=== PATIENT | male | born 1950 | race Two or more races ===

== ENCOUNTER 2017-05-30 14:29 | Inpatient (IN) | payer OTHER, MEDICAID ==
[~2017-05-30] VITALS: Ht 167.6 cm; Wt 88.9 kg
[2017-05-30] MEDS ORDERED: Solu-MEDROL 125mg Inj IVP ONE (14:45)
[2017-05-30 14:50] VITALS: BP 159/106
--- NOTE | 2017-05-30 14:53 | Emergency Room Report ---
History of Present Illness General Chief Complaint: Upper Respiratory Illness Source: Patient Present Illness HPI 67-year-old male with history of asthma, htn p/w SOB for 2 weeks SOB occurs both at rest and on exertion. + non productive cough. Denies chest pain. Patient has been using albuterol inhaler every 6 hours. No recent steroid use. Pt states that this episode is similar to other episodes of asthma exacerbation. Denies fever, chills. Denies sick contacts or recent travel. States that he just came from his doctor's office who sent him to the ER Allergies: Coded Allergies: No Known Allergies (Unverified , 05/30/17) Patient History Past Medical History: see triage record Past Surgical History: none Pertinent Family History: none Reviewed Nursing Documentation: PMH: Agreed, PSxH: Agreed Nursing Documentation-PMH Past Medical History: No History, Except For Hx Hypertension: Yes Hx Asthma: Yes Hx Diabetes: Yes Review of Systems All Other Systems: negative except mentioned in HPI Physical Exam Vital Signs Date Time Temp Pulse Resp B/P (MAP) Pulse Ox O2 Delivery O2 Flow Rate FiO2 05/30/17 14:38 98.2 68 18 160/84 92 Room Air 98.2 Sp02 EP Interpretation: reviewed, normal General Appearance: alert, GCS 15, non-toxic, moderate distress Head: normocephalic, atraumatic Eyes: bilateral eye normal inspection, bilateral eye PERRL, bilateral eye EOMI ENT: normal ENT inspection, normal pharynx, normal voice, moist mucus membranes Neck: normal inspection, full range of motion, supple Respiratory: respiratory distress, wheezing, expiration Cardiovascular #1: normal inspection, regular rate, rhythm, no edema, normal capillary refill Cardiovascular #2: 2+ radial (R), 2+ radial (L) Gastrointestinal: normal inspection, non tender, soft, non-distended, no guarding Genitourinary: no CVA tenderness Musculoskeletal: normal inspection, back normal, normal range of motion, non- tender Neurologic: normal inspection, alert, oriented x3, responsive, motor strength/ tone normal, sensory intact, normal gait, speech normal Psychiatric: normal inspection, judgement/insight normal, memory normal Skin: normal inspection, normal color, no rash, warm/dry, well hydrated, normal turgor Procedures Critical Care Time Critical Care Time 40 minutes of CC time 67-year-old male with asthma exacerbation VS: Hypoxic, tachypneic PLAN: IV access, labs, meds steroids and magnesium Anticipate admission to Tele vs. KANDICE CC time also includes review of labs, review of EMR, discussion with family and paperwork from SNF, d/w hospitalist CC could include dosing of pressors, additional Abx CC time does not include procedures Medical Decision Making Diagnostic Impression: Primary Impression: Asthma exacerbation ER Course 67-year-old male with history of asthma p/w SOB DDX: Asthma exacerbation, pneumonia, upper respiratory infection/viral syndrome Plan: Combivent nebulizer treatment x 3, steroids, EKG, CXR If patient's condition minimally improves/worsens will require IV access and blood work. Possible IV medications such as magnesium sulfate, continuous albuterol, BIPAP. ER Course: Patient's respiratory status has been closely monitored in the ED. Patient has been treated with combivent x 3, steroids, antibiotics. IV mag sulfate CXR reveals no acute infiltrate Repeat lung auscultation reveals persistent wheezing. more nebs given, however pt does appear more comfortable Disposition: pt approved to be admitted to observation DW Dr Kaur Please note that this Emergency Department Report was dictated using [employer] property disposal agent technology software, occasionally this can lead to erroneous entry secondary to interpretation by the dictation equipment. EKG Diagnostic Results EP Interpretation: Yes Rate: normal Rhythm: NSR ST Segments: No acute changes, RBBB ASA given to patient: No Rhythm Strip EP Interpretation: Yes Rate: 66 Rhythm: NSR, no PVCs, no ectopy Chest X-ray CXR: Ordered: Yes 1 view Indication: SOB EP interpretation: Yes Interpretation: No consolidation, no effusion, no PTX, no acute cardiopulmonary disease Impression: No acute disease Electronically signed by Irma Rose MD Laboratory Tests Test 05/30/17 14:25 05/30/17 15:00 Urine Color Pale yellow Urine Appearance Clear Urine pH 7 (4.5-8.0) Urine Specific [place] 1.005 (1.005-1.035) Urine Protein Negative (NEGATIVE) Urine Glucose (UA) 4+ (NEGATIVE) H Urine Ketones Negative (NEGATIVE) Urine Occult Blood Negative (NEGATIVE) Urine Nitrite Negative (NEGATIVE) Urine Bilirubin Negative (NEGATIVE) Urine Urobilinogen Normal MG/DL (0.0-1.0) Urine Leukocyte Esterase Negative (NEGATIVE) White Blood Count 8.7 K/UL (4.8-10.8) Red Blood Count 4.27 M/UL (4.70-6.10) L Hemoglobin 14.2 G/DL (14.2-18.0) Hematocrit 40.3 % (42.0-52.0) L Mean Corpuscular Volume 94 FL (80-99) Mean Corpuscular Hemoglobin 33.2 PG (27.0-31.0) H Mean Corpuscular Hemoglobin Concent 35.1 G/DL (32.0-36.0) Red Cell Distribution Width 11.8 % (11.6-14.8) Platelet Count 279 K/UL (150-450) Mean Platelet Volume 5.7 FL (6.5-10.1) L Neutrophils (%) (Auto) % (45.0-75.0) Lymphocytes (%) (Auto) % (20.0-45.0) Monocytes (%) (Auto) % (1.0-10.0) Eosinophils (%) (Auto) % (0.0-3.0) Basophils (%) (Auto) % (0.0-2.0) Neutrophils % (Manual) Pending Lymphocytes % (Manual) Pending Platelet Estimate Pending Platelet Morphology Pending Sodium Level 140 MMOL/L (136-145) Potassium Level 4.8 MMOL/L (3.5-5.1) Chloride Level 101 MMOL/L (98-107) Carbon Dioxide Level 36 MMOL/L (21-32) H Anion Gap 3 mmol/L (5-15) L Blood Urea Nitrogen 17 mg/dL (7-18) Creatinine 1.3 MG/DL (0.55-1.30) Estimate Glomerular Filtration Rate 55.2 mL/min (>60) Glucose Level 222 MG/DL (74-106) H Calcium Level 9.2 MG/DL (8.5-10.1) Total Bilirubin 0.3 MG/DL (0.2-1.0) Aspartate Amino Transferase (AST) 24 U/L (15-37) Alanine Aminotransferase (ALT) 35 U/L (12-78) Alkaline Phosphatase 100 U/L (46-116) Troponin I 0.004 ng/mL (0.000-0.056) Pro-B-Type Natriuretic Peptide 253 pg/mL (0-125) H Total Protein 7.4 G/DL (6.4-8.2) Albumin 3.3 G/DL (3.4-5.0) L Globulin 4.1 g/dL Albumin/Globulin Ratio 0.8 (1.0-2.7) L Last Vital Signs Date Time Temp Pulse Resp B/P (MAP) Pulse Ox O2 Delivery O2 Flow Rate FiO2 05/30/17 14:50 98.5 66 20 159/106 97 Room Air 98.5 Disposition: PLACE IN OBSERVATION Condition: Serious RetinoIrma M.D. May 30, 2017 14:53
[2017-05-30] MEDS ORDERED: ASPIR 8181 MG ORAL (14:58)
[2017-05-30] MEDS ORDERED: GABAPENTIN300 MG ORAL (14:58)
[2017-05-30] MEDS ORDERED: MONTELUKAST SOD10 MG ORAL (14:58)
[2017-05-30] MEDS ORDERED: THEOPHYLLINE400 MG PO (14:58)
[2017-05-30] MEDS ORDERED: NOVOLOG100 UNIT/3 SUBQ (14:58)
[2017-05-30] MEDS ORDERED: POTASSIUM 25 M25 ME1 PO (14:58)
[2017-05-30] MEDS ORDERED: METOPROLOL TART50 MG ORAL (14:58)
[2017-05-30] MEDS: Albuterol ud Inhalation HHN SCH ×6 (15:02→16:29)
[2017-05-30] MEDS: Ipratropium 0.02% Inh Soln 2.5ml UD HHN SCH ×3 (15:03→15:36)
[2017-05-30 15:27] LABS: HEMATOCRIT 40.3 % (42.0-52.0); HEMOGLOBIN 14.2 G/DL (14.2-18.0); MEAN CORPUSCULAR VOLUME 94 FL (80-99); PLATELET COUNT 279 K/UL (150-450); RED BLOOD COUNT 4.27 M/UL (4.70-6.10); RED CELL DISTRIBUTION WIDTH 11.8 % (11.6-14.8); WHITE BLOOD COUNT 8.7 K/UL (4.8-10.8)
[2017-05-30 15:47] LABS: APPEARANCE,URINE CLEAR; BILIRUBIN, URINE NEGATIVE (NEGATIVE); COLOR,URINE PALE YELLOW; GLUCOSE, URINE (UA) 4+ (NEGATIVE); KETONES,URINE NEGATIVE (NEGATIVE); LEUKOCYTE ESTERASE ,URINE NEGATIVE (NEGATIVE); NITRITE,URINE NEGATIVE (NEGATIVE); PH,URINE 7 (4.5-8.0); PROTEIN,URINE NEGATIVE (NEGATIVE); UROBILINOGEN,URINE NORMAL MG/DL (0.0-1.0)
[2017-05-30 15:48] LABS: ANION GAP 3 mmol/L (5-15); BLOOD UREA NITROGEN 17 mg/dL (7-18); CALCIUM 9.2 MG/DL (8.5-10.1); CARBON DIOXIDE 36 MMOL/L (21-32); CHLORIDE 101 MMOL/L (98-107); CREATININE 1.3 MG/DL (0.55-1.30); POTASSIUM 4.8 MMOL/L (3.5-5.1); SODIUM 140 MMOL/L (136-145)
[2017-05-30 16:00] LABS: ALANINE AMINOTRANSFERASE 35 U/L (12-78); ALBUMIN 3.3 G/DL (3.4-5.0); ALBUMIN/GLOBULIN RATIO 0.8 (1.0-2.7); ALKALINE PHOSPHATASE 100 U/L (46-116); ASPARTATE AMINO TRANSFERASE 24 U/L (15-37); BILIRUBIN,TOTAL 0.3 MG/DL (0.2-1.0)
--- NOTE | 2017-05-30 16:14 | Diagnostic Imaging Report ---
Indication: Shortness of breath Technique: One view of the chest Comparison: none Findings: The heart is upper limits of normal in size. Lungs and pleural spaces are clear. Impression: No acute process
[2017-05-30 16:30] VITALS: BP 160/80
[2017-05-30 18:30] VITALS: BP 141/56
[2017-05-30 20:00] VITALS: BP 160/73
[2017-05-30] MEDS ORDERED: Levemir Flexpen SUBQ SCH (23:15)
[2017-05-31] VITALS: BP 147/60
[2017-05-31] MEDS: Solu-MEDROL 40mg Inj IVP SCH ×4 (01:00→17:56)
[2017-05-31] MEDS: Albuterol/Ipratropium 3ml neb HHN SCH ×6 (03:24→23:02)
[2017-05-31 04:00] VITALS: BP 140/68
[2017-05-31 06:39] LABS: HEMATOCRIT 39.6 % (42.0-52.0); HEMOGLOBIN 13.6 G/DL (14.2-18.0); MEAN CORPUSCULAR VOLUME 96 FL (80-99); PLATELET COUNT 289 K/UL (150-450); RED BLOOD COUNT 4.14 M/UL (4.70-6.10); RED CELL DISTRIBUTION WIDTH 11.9 % (11.6-14.8); WHITE BLOOD COUNT 10.8 K/UL (4.8-10.8)
[2017-05-31 07:00] LABS: ANION GAP 12 mmol/L (5-15); BLOOD UREA NITROGEN 22 mg/dL (7-18); CALCIUM 9.4 MG/DL (8.5-10.1); CARBON DIOXIDE 27 MMOL/L (21-32); CHLORIDE 95 MMOL/L (98-107); CREATININE 1.6 MG/DL (0.55-1.30); POTASSIUM 4.8 MMOL/L (3.5-5.1); SODIUM 134 MMOL/L (136-145)
[2017-05-31 08:00] VITALS: BP 163/110
[2017-05-31] MEDS ORDERED: Meloxicam 15 MG TAB ORAL SCH (09:45)
[2017-05-31] MEDS ORDERED: Azithromycin 250mg tab ORAL ONE (09:45)
[2017-05-31] MEDS: Losartan 50mg tab ORAL SCH (10:50)
[2017-05-31] MEDS: Furosemide 40mg tab ORAL SCH (10:51)
[2017-05-31] MEDS: Metoprolol Tartrate 50mg tab ORAL SCH ×2 (10:51→21:43)
[2017-05-31] MEDS: Levemir Flexpen SUBQ SCH (11:00)
[2017-05-31 12:00] VITALS: BP 155/93
--- NOTE | 2017-05-31 15:45 | History and Physical Report ---
DATE OF ADMISSION: 05/30/2017 HISTORY OF PRESENT ILLNESS: The patient is a 67-year-old man, who came to the emergency department because of increasing shortness of breath, wheezing, and cough due to asthma. He states he has been having more difficulty over the past two weeks. He has asthma for about four years. He quit smoking about 30 years ago, but was a heavy smoker prior to that. The patient was admitted and started on breathing treatments and steroids and is feeling better. He is coughing up yellow sputum. He has no high fever. PAST MEDICAL HISTORY: The patient has longstanding asthma as noted above. In addition, he has diabetes, hypertension, and hyperlipidemia. He states he has had two heart attacks in the past. He has a history of edema and difficulty urinating. ALLERGIES: None. MEDICATIONS: Reviewed. REVIEW OF SYSTEMS: He complains of arthritis. PHYSICAL EXAMINATION: GENERAL: The patient is overweight. VITAL SIGNS: Show blood pressure is elevated. There is no fever. SKIN: Warm and dry. HEAD: Head is normocephalic. NECK: No jugular vein distention. CHEST: Has wheezing. CARDIAC: Rhythm is regular. ABDOMEN: Obese, soft, and nontender. EXTREMITIES: Have 1+ edema. LABORATORY AND DIAGNOSTIC DATA: Laboratory studies are reviewed. Chest x-ray is clear. IMPRESSION: 1. Exacerbation of asthma. 2. Diabetes, poor control. 3. Hypertension, poor control. 4. History of coronary disease. 5. Chronic kidney disease, stage 3 associated with diabetes. PLAN: The patient will be continued on nebulized bronchodilators and steroids. We will add antibiotics and blood pressure medication. We will not give nonsteroidal medications due to kidney disease. The blood sugar will be monitored and insulin adjusted accordingly. Torito Moreau M.D. DR: GADIEL JOB#: [id number] CC: Mina Kaur M.D.; Fax#: [phone] TORITO MOREAU M.D. ; FAX#: [phone]
[2017-05-31 16:00] VITALS: BP 151/79
[2017-05-31] MEDS ORDERED: Flu Vaccine Quadrivalent 0.5ml IM ONE (17:00)
[2017-05-31 20:00] VITALS: BP 146/68
[2017-05-31] MEDS ORDERED: Levemir Flexpen SUBQ SCH (21:00)
[2017-05-31] MEDS: NovoLOG Insulin Flexpen SUBQ SCH (21:38)
[2017-05-31] MEDS ORDERED: NovoLOG Insulin Flexpen SUBQ STA (22:40)
[2017-06-01] VITALS: BP 130/61
[2017-06-01] MEDS: Solu-MEDROL 40mg Inj IVP SCH ×2 (00:16→05:58)
[2017-06-01] MEDS ORDERED: NovoLOG Insulin Flexpen SUBQ ONE (01:00)
[2017-06-01] MEDS: Albuterol/Ipratropium 3ml neb HHN SCH ×6 (03:15→23:00)
[2017-06-01 04:00] VITALS: BP 135/95
[2017-06-01] MEDS: NovoLOG Insulin Flexpen SUBQ SCH ×4 (06:01→20:38)
[2017-06-01 06:56] LABS: HEMATOCRIT 40.1 % (42.0-52.0); MEAN CORPUSCULAR VOLUME 94 FL (80-99); PLATELET COUNT 292 K/UL (150-450); RED BLOOD COUNT 4.26 M/UL (4.70-6.10); RED CELL DISTRIBUTION WIDTH 11.9 % (11.6-14.8); WHITE BLOOD COUNT 18.3 K/UL (4.8-10.8)
[2017-06-01 07:18] LABS: ALANINE AMINOTRANSFERASE 64 U/L (12-78); ALBUMIN 3.7 G/DL (3.4-5.0); ALBUMIN/GLOBULIN RATIO 0.9 (1.0-2.7); ALKALINE PHOSPHATASE 99 U/L (46-116); ANION GAP 11 mmol/L (5-15); ASPARTATE AMINO TRANSFERASE 95 U/L (15-37); BILIRUBIN,TOTAL 0.3 MG/DL (0.2-1.0); BLOOD UREA NITROGEN 38 mg/dL (7-18); CARBON DIOXIDE 31 MMOL/L (21-32); CHLORIDE 98 MMOL/L (98-107); CHOLESTEROL 156 MG/DL (< 200); CREATININE 1.7 MG/DL (0.55-1.30); HDL CHOLESTEROL 41 MG/DL (40-60); POTASSIUM 3.8 MMOL/L (3.5-5.1); SODIUM 139 MMOL/L (136-145); TRIGLYCERIDES 118 MG/DL (30-150)
[2017-06-01 08:00] VITALS: BP 141/65
[2017-06-01] MEDS: Metoprolol Tartrate 50mg tab ORAL SCH ×2 (08:31→20:49)
[2017-06-01] MEDS: Furosemide 40mg tab ORAL SCH (08:31)
[2017-06-01] MEDS: Losartan 50mg tab ORAL SCH (08:31)
[2017-06-01] MEDS: Levemir Flexpen SUBQ SCH (08:43)
[2017-06-01] MEDS ORDERED: Azithromycin 250mg tab ORAL SCH (09:00)
--- NOTE | 2017-06-01 11:21 | Pulmonology Progress Note ---
Assessment/Plan Assessment/Plan 1. Exacerbation of asthma. 2. Diabetes, poor control. 3. Hypertension, poor control. 4. History of coronary disease. 5. Chronic kidney disease, stage 3 associated with diabetes. PLAN: The patient will be continued on nebulized bronchodilators and steroids. Continue antibiotics and blood pressure medication. The blood sugar will be monitored and insulin adjusted accordingly. Subjective Interval Events: Feeling better; WBC 18K Constitutional: Reports: no symptoms HEENT: Repors: no symptoms Respiratory: Reports: no symptoms Cardiovascular: Reports: no symptoms Genitourinary: Reports: no symptoms Allergies: Coded Allergies: No Known Allergies (Unverified , 05/30/17) Objective Last 24 Hour Vital Signs Date Time Temp Pulse Resp B/P (MAP) Pulse Ox O2 Delivery O2 Flow Rate FiO2 06/01/17 10:43 83 20 100 Room Air 21 06/01/17 10:37 21 06/01/17 10:36 81 20 98 Room Air 21 06/01/17 08:31 141/65 06/01/17 08:31 85 141/65 06/01/17 08:00 97.9 85 21 141/65 97 Room Air 97.9 06/01/17 07:14 82 20 99 Room Air 21 06/01/17 07:03 21 06/01/17 07:01 84 20 98 Room Air 21 06/01/17 04:00 83 06/01/17 04:00 97.9 83 18 135/95 93 Room Air 97.9 06/01/17 03:30 74 20 95 Room Air 21 06/01/17 03:15 21 06/01/17 03:14 74 20 95 Room Air 21 06/01/17 00:00 78 06/01/17 00:00 97.9 78 20 130/61 95 Room Air 97.9 05/31/17 23:14 88 22 95 Room Air 21 05/31/17 23:01 88 22 95 Room Air 21 05/31/17 23:01 21 05/31/17 21:43 91 146/68 05/31/17 20:00 107 05/31/17 20:00 98.4 91 16 146/68 95 Room Air 98.4 05/31/17 19:39 98 22 94 Room Air 21 05/31/17 19:27 98 22 94 Room Air 21 05/31/17 19:27 21 05/31/17 16:00 98 05/31/17 16:00 98.0 99 22 151/79 94 Room Air 98.0 05/31/17 15:01 99 18 99 Room Air 21 05/31/17 14:55 21 05/31/17 14:54 94 18 98 Room Air 21 05/31/17 12:00 97 05/31/17 12:00 97.2 109 20 155/93 94 Room Air 97.2 05/31/17 11:37 105 18 100 Room Air 21 05/31/17 11:32 21 05/31/17 11:31 103 18 99 Room Air 21 Intake and Output 05/31/17 06/01/17 19:00 07:00 Intake Total 960 ml 1000 ml Balance 960 ml 1000 ml Intake Oral 960 ml 1000 ml HEENT: normocephalic Respiratory/Chest: chest wall non-tender, normal breath sounds Cardiovascular: normal peripheral pulses Abdomen: normal bowel sounds Laboratory Tests 06/01/17 06:10: White Blood Count 18.3#H, Red Blood Count 4.26L, Hemoglobin 14.0L, Hematocrit 40.1L, Mean Corpuscular Volume 94, Mean Corpuscular Hemoglobin 32.8H, Mean Corpuscular Hemoglobin Concent 34.8, Red Cell Distribution Width 11.9, Platelet Count 292, Mean Platelet Volume 5.7L, Neutrophils (%) (Auto) , Lymphocytes (%) ( Auto) , Monocytes (%) (Auto) , Eosinophils (%) (Auto) , Basophils (%) (Auto) , Differential Total Cells Counted 100, Neutrophils % (Manual) 94H, Lymphocytes % (Manual) 2L, Monocytes % (Manual) 4, Eosinophils % (Manual) 0, Basophils % ( Manual) 0, Band Neutrophils 0, Platelet Estimate Adequate, Platelet Morphology Normal, Red Blood Cell Morphology Normal, Sodium Level 139, Potassium Level 3.8 , Chloride Level 98, Carbon Dioxide Level 31, Anion Gap 11, Blood Urea Nitrogen 38H, Creatinine 1.7H, Estimat Glomerular Filtration Rate 40.5, Glucose Level 339H, Hemoglobin A1c 9.0H, Calcium Level 9.0, Total Bilirubin 0.3, Aspartate Amino Transf (AST/SGOT) 95H, Alanine Aminotransferase (ALT/SGPT) 64, Alkaline Phosphatase 99, Total Protein 7.9, Albumin 3.7, Globulin 4.2, Albumin/Globulin Ratio 0.9L, Triglycerides Level 118, Cholesterol Level 156, LDL Cholesterol 104H , HDL Cholesterol 41, Cholesterol/HDL Ratio 3.8, Prostate Specific Antigen 1.46 , Thyroid Stimulating Hormone (TSH) 0.131L Current Medications Medications (Trade) Dose Ordered Sig/Migel Route PRN Reason Start Time Stop Time Status Last Admin Dose Admin Albuterol/ Ipratropium (Albuterol/ Ipratropium) 3 ml Q4HRT HHN 05/31/17 03:00 06/05/17 02:59 06/01/17 10:36 Azithromycin (Zithromax) 250 mg DAILY ORAL 06/01/17 09:00 06/08/17 08:59 06/01/17 08:31 Dextrose (Dextrose 50%) STAT PRN IV Hypoglycemia 05/31/17 20:45 06/30/17 20:44 Furosemide (Lasix) 40 mg DAILY ORAL 05/31/17 09:00 06/30/17 08:59 06/01/17 08:31 Gabapentin (Neurontin) 300 mg TID ORAL 05/31/17 09:00 06/30/17 08:59 06/01/17 08:31 Insulin Aspart (NovoLOG) BEFORE MEALS AND HS SUBQ 05/31/17 21:00 06/30/17 20:59 06/01/17 06:01 Insulin Detemir (Levemir) 8 units DAILY SUBQ 05/31/17 09:00 06/30/17 08:59 06/01/17 08:43 Insulin Detemir (Levemir) 60 units BEDTIME SUBQ 06/01/17 21:00 07/01/17 20:59 Losartan Potassium (Cozaar) 100 mg DAILY ORAL 05/31/17 10:00 06/30/17 09:59 06/01/17 08:31 Methylprednisolone Sodium Succinate (Solu-MEDROL) 40 mg EVERY 6 HOURS IVP 05/31/17 00:00 06/30/17 00:00 06/01/17 05:58 Metoprolol Tartrate (Lopressor) 50 mg Q12HR ORAL 05/31/17 09:00 06/30/17 08:59 06/01/17 08:31 Pantoprazole (Protonix) 40 mg DAILY ORAL 05/31/17 09:45 06/30/17 09:44 06/01/17 08:31 Potassium Chloride (K-Dur) 20 meq DAILY ORAL 05/31/17 09:00 06/30/17 08:59 06/01/17 08:31 Mina Kaur MD Jun 01, 2017 11:21
[2017-06-01 12:00] VITALS: BP 137/60
[2017-06-01 16:00] VITALS: BP 137/65
[2017-06-01 20:00] VITALS: BP 159/69
[2017-06-01] MEDS ORDERED: Solu-MEDROL 40mg Inj IVP SCH (21:00)
[2017-06-01] MEDS ORDERED: Levemir Flexpen SUBQ SCH (21:00)
[2017-06-02] VITALS (12 sets, daily range): BP systolic 126–179; BP diastolic 58–146
[2017-06-02] MEDS: Albuterol/Ipratropium 3ml neb HHN SCH (03:00)
[2017-06-02] MEDS: NovoLOG Insulin Flexpen SUBQ SCH ×3 (06:21→20:58)
[2017-06-02 07:35] LABS: HEMATOCRIT 39.1 % (42.0-52.0); HEMOGLOBIN 13.6 G/DL (14.2-18.0); MEAN CORPUSCULAR VOLUME 94 FL (80-99); PLATELET COUNT 270 K/UL (150-450); RED BLOOD COUNT 4.16 M/UL (4.70-6.10); RED CELL DISTRIBUTION WIDTH 11.7 % (11.6-14.8); WHITE BLOOD COUNT 17.1 K/UL (4.8-10.8)
[2017-06-02 07:55] LABS: ANION GAP 4 mmol/L (5-15); BLOOD UREA NITROGEN 33 mg/dL (7-18); CALCIUM 8.4 MG/DL (8.5-10.1); CARBON DIOXIDE 34 MMOL/L (21-32); CHLORIDE 102 MMOL/L (98-107); CREATININE 1.2 MG/DL (0.55-1.30); POTASSIUM 4.4 MMOL/L (3.5-5.1); SODIUM 140 MMOL/L (136-145)
[2017-06-02] MEDS ORDERED: Furosemide 40mg tab ORAL SCH (09:00)
[2017-06-02] MEDS ORDERED: Metoprolol Tartrate 50mg tab ORAL SCH (09:00)
[2017-06-02] MEDS ORDERED: Azithromycin 250mg tab ORAL SCH (09:00)
[2017-06-02] MEDS ORDERED: Losartan 50mg tab ORAL SCH (09:00)
[2017-06-02] MEDS ORDERED: Levemir Flexpen SUBQ SCH ×2 (09:00→21:00)
[2017-06-02] MEDS ORDERED: Solu-MEDROL 40mg Inj IVP SCH (09:00)
[2017-06-02] MEDS ORDERED: NovoLOG Insulin Flexpen SUBQ SCH (11:30)
--- NOTE | 2017-06-02 11:40 | Pulmonology Progress Note ---
Assessment/Plan Assessment/Plan 1. Exacerbation of asthma. 2. Diabetes, poor control. 3. Hypertension, poor control. 4. History of coronary disease. 5. Chronic kidney disease, stage 3 associated with diabetes. 6. tachycardia; now resolved. PLAN: The patient will be continued on nebulized bronchodilators and steroids. Continue antibiotics and blood pressure medication. The blood sugar will be monitored and insulin adjusted accordingly. Transfer back to [facility] Will consult cardiology Subjective Interval Events: Transferred to ICU last night diue to tachycardia Constitutional: Reports: no symptoms HEENT: Repors: no symptoms Respiratory: Reports: no symptoms Cardiovascular: Reports: no symptoms Gastrointestinal/Abdominal: Reports: no symptoms Allergies: Coded Allergies: No Known Allergies (Unverified , 05/30/17) Objective Last 24 Hour Vital Signs Date Time Temp Pulse Resp B/P (MAP) Pulse Ox O2 Delivery O2 Flow Rate FiO2 06/02/17 11:00 59 18 160/71 99 Nasal Cannula 2.0 06/02/17 10:00 67 18 148/129 99 Nasal Cannula 2.0 06/02/17 09:05 85 142/63 06/02/17 09:03 142/63 06/02/17 09:00 86 18 179/146 99 Nasal Cannula 2.0 06/02/17 08:00 98.2 83 18 142/63 99 Nasal Cannula 2.0 98.2 06/02/17 07:05 66 18 136/58 95 Nasal Cannula 2.0 06/02/17 06:09 70 18 134/66 97 Nasal Cannula 2.0 06/02/17 05:00 85 20 133/68 98 Nasal Cannula 2.0 06/02/17 04:42 Nasal Cannula 2.0 06/02/17 04:42 100 Nasal Cannula 2.0 06/02/17 04:15 80 06/02/17 04:00 98.0 180 20 164/91 97 Nasal Cannula 2.0 98.0 06/02/17 03:30 Room Air 06/02/17 03:29 Room Air 06/02/17 00:03 97.4 67 18 126/63 94 Room Air 97.4 06/02/17 00:00 65 06/01/17 23:37 Room Air 06/01/17 23:37 Room Air 06/01/17 20:49 85 159/69 06/01/17 20:00 97.1 85 17 159/69 94 Room Air 97.1 06/01/17 20:00 83 06/01/17 20:00 82 20 100 Room Air 21 06/01/17 19:52 84 20 96 Room Air 21 06/01/17 19:52 21 06/01/17 16:00 81 06/01/17 16:00 97.7 81 22 137/65 95 Room Air 97.7 06/01/17 14:48 86 20 100 Room Air 21 06/01/17 14:41 21 06/01/17 14:40 79 20 99 Room Air 21 06/01/17 12:00 82 06/01/17 12:00 97.9 78 22 137/60 97 Room Air 97.9 Intake and Output 06/01/17 06/02/17 19:00 07:00 Intake Total 900 ml 240 ml Output Total 700 ml Balance 900 ml -460 ml Intake Oral 900 ml 240 ml Output Urine Total 700 ml # Bowel Movements 1 General Appearance: no acute distress HEENT: normocephalic Respiratory/Chest: chest wall non-tender, lungs clear Cardiovascular: normal peripheral pulses, normal rate Abdomen: normal bowel sounds Laboratory Tests 06/02/17 04:22: Arterial Blood pH 7.454H, Arterial Blood Partial Pressure CO2 42.9, Arterial Blood Partial Pressure O2 96.7, Arterial Blood HCO3 29.4H, Arterial Blood Oxygen Saturation 97.4, Arterial Blood Base Excess 4.9, Rodrick Test Positive 06/02/17 07:00: White Blood Count 17.1H, Red Blood Count 4.16L, Hemoglobin 13.6L, Hematocrit 39.1L, Mean Corpuscular Volume 94, Mean Corpuscular Hemoglobin 32.8H, Mean Corpuscular Hemoglobin Concent 34.8, Red Cell Distribution Width 11.7, Platelet Count 270, Mean Platelet Volume 6.1L, Neutrophils (%) (Auto) , Lymphocytes (%) ( Auto) , Monocytes (%) (Auto) , Eosinophils (%) (Auto) , Basophils (%) (Auto) , Differential Total Cells Counted 100, Neutrophils % (Manual) 88H, Lymphocytes % (Manual) 7L, Monocytes % (Manual) 5, Eosinophils % (Manual) 0, Basophils % ( Manual) 0, Band Neutrophils 0, Platelet Estimate Adequate, Platelet Morphology Normal, Red Blood Cell Morphology Normal, Sodium Level 140, Potassium Level 4.4 , Chloride Level 102, Carbon Dioxide Level 34H, Anion Gap 4L, Blood Urea Nitrogen 33H, Creatinine 1.2, Estimat Glomerular Filtration Rate > 60, Glucose Level 266H, Calcium Level 8.4L, Troponin I 0.121H Current Medications Medications (Trade) Dose Ordered Sig/Migel Route PRN Reason Start Time Stop Time Status Last Admin Dose Admin Azithromycin (Zithromax) 250 mg DAILY ORAL 06/02/17 09:00 06/08/17 08:59 06/02/17 09:23 Dextrose (Dextrose 50%) STAT PRN IV Hypoglycemia 06/02/17 07:00 07/02/17 06:59 Furosemide (Lasix) 40 mg DAILY ORAL 06/02/17 09:00 06/30/17 08:59 06/02/17 09:04 Gabapentin (Neurontin) 300 mg TID ORAL 06/02/17 09:00 06/30/17 08:59 06/02/17 08:58 Insulin Aspart (NovoLOG) BEFORE MEALS AND HS SUBQ 06/02/17 11:30 06/30/17 20:59 Insulin Detemir (Levemir) 8 units DAILY SUBQ 06/02/17 09:00 06/30/17 08:59 06/02/17 08:48 Insulin Detemir (Levemir) 60 units BEDTIME SUBQ 06/02/17 21:00 07/01/17 20:59 Losartan Potassium (Cozaar) 100 mg DAILY ORAL 06/02/17 09:00 06/30/17 09:59 06/02/17 09:03 Methylprednisolone Sodium Succinate (Solu-MEDROL) 40 mg EVERY 12 HOURS IVP 06/02/17 09:00 06/30/17 00:00 06/02/17 08:49 Metoprolol Tartrate (Lopressor) 50 mg Q12HR ORAL 06/02/17 09:00 06/30/17 08:59 06/02/17 09:05 Pantoprazole (Protonix) 40 mg DAILY ORAL 06/02/17 09:00 06/30/17 09:44 06/02/17 08:58 Potassium Chloride (K-Dur) 20 meq DAILY ORAL 06/02/17 09:00 06/30/17 08:59 06/02/17 08:57 Mina Kaur MD Jun 02, 2017 11:40
[2017-06-02] MEDS ORDERED: Flonase Nasal Inhaler 16gm NASAL PRN ×2 (13:30)
[2017-06-02] MEDS: Solu-MEDROL 40mg Inj IVP SCH (20:54)
[2017-06-02] MEDS: Metoprolol Tartrate 50mg tab ORAL SCH (20:55)
[2017-06-02] MEDS: Levemir Flexpen SUBQ SCH (20:58)
[2017-06-02] MEDS: Aspirin Baby 81mg ORAL SCH (21:27)
--- NOTE | 2017-06-03 03:30 | Consultation ---
DATE OF CONSULTATION: 06/02/2017 CARDIOLOGY CONSULTATION CONSULTING PHYSICIAN: Jong Matthews M.D. REQUESTING PHYSICIAN: Mina Kaur M.D. HISTORY OF PRESENT ILLNESS: This is a 67-year-old male, who came to the emergency room several days ago with shortness of breath, wheezing, and cough. He has a history of asthma. He was treated with inhaled bronchodilators and antimicrobials. He was admitted to the intensive care unit due to worsening respiratory parameters over the past few days as well as uncontrolled blood pressure. His respiratory parameters improved today and he was noted to have a troponin level elevation of 0.112, which was normal on admission. He has not noted any chest pain. PAST MEDICAL HISTORY: Coronary artery disease, history of myocardial infarctions x2, type 2 diabetes mellitus, hypertension, hyperlipidemia, asthma, and prostatic hypertrophy. MEDICATIONS: Reviewed. ALLERGIES: None. FAMILY HISTORY: Noncontributory. SOCIAL HISTORY: No record of smoking or substance abuse. No alcohol abuse. REVIEW OF SYSTEMS: Otherwise unremarkable. PHYSICAL EXAMINATION: VITAL SIGNS: Blood pressure ranging from 142/63 to 160/71. There is an extraneous level of 179/146 noted early this morning as well. He has heart rate in the 59 to 86 and respiratory 18 to 20. HEENT: Conjunctiva pink. Oropharynx clear. NECK: Supple. No accessory muscle use. LUNGS: With diminished breath sounds. No wheezing. CARDIAC: Regular rhythm and rate. Normal S1, S2 with a fourth heart sound. ABDOMEN: Soft. EXTREMITIES: No edema. DIAGNOSTIC DATA: EKG revealed ectopic atrial rhythm, right bundle-branch block, and nonspecific ST-T changes. IMPRESSION: 1. Asthma exacerbation, improved. 2. Accelerated hypertension, improving. 3. Elevated troponin level in the setting of ischemic heart disease suggestive of acute myocardial ischemia and possible [id number] myocardial infarction. PLAN: 1. Add aspirin. 2. Follow up troponin level and EKG. 3. Consider myocardial perfusion scan. 4. Maintain beta-shivam and titration of antihypertensive regimen for optimal blood pressure control. Jong Matthews M.D. DR: BUDDY JOB#: [id number] CC:
[2017-06-03 04:00] VITALS: BP 143/85
[2017-06-03] MEDS: NovoLOG Insulin Flexpen SUBQ SCH ×4 (05:48→20:41)
[2017-06-03 08:00] VITALS: BP 150/75
--- NOTE | 2017-06-03 09:38 | Pulmonology Progress Note ---
Assessment/Plan Assessment/Plan 1. Exacerbation of asthma. 2. Diabetes, poor control. 3. Hypertension, poor control. 4. History of coronary disease. 5. Chronic kidney disease, stage 3 associated with diabetes. 6. tachycardia; now resolved. PLAN: The patient will be continued on nebulized bronchodilators and steroids. Continue antibiotics and blood pressure medication. The blood sugar will be monitored and insulin adjusted accordingly. Transfer back to [facility] Has troponin leak; seen by cardiology Stress test being planned. Subjective Interval Events: FEELING BETTER Constitutional: Reports: no symptoms HEENT: Repors: no symptoms Respiratory: Reports: no symptoms Cardiovascular: Reports: no symptoms Gastrointestinal/Abdominal: Reports: no symptoms Genitourinary: Reports: no symptoms Allergies: Coded Allergies: No Known Allergies (Unverified , 05/30/17) Objective Last 24 Hour Vital Signs Date Time Temp Pulse Resp B/P (MAP) Pulse Ox O2 Delivery O2 Flow Rate FiO2 06/03/17 04:00 97.2 56 20 143/85 100 Room Air 97.2 06/03/17 03:58 57 06/03/17 00:00 57 06/02/17 20:55 79 149/76 06/02/17 19:46 73 06/02/17 15:58 97.5 71 18 150/73 99 Room Air 97.5 06/02/17 15:31 72 06/02/17 14:43 62 18 135/60 99 Room Air 06/02/17 12:00 66 18 148/71 99 Nasal Cannula 2.0 06/02/17 12:00 58 06/02/17 11:00 59 18 160/71 99 Nasal Cannula 2.0 06/02/17 10:00 67 18 148/129 99 Nasal Cannula 2.0 Intake and Output 06/02/17 06/03/17 19:00 07:00 Intake Total 750 ml 400 ml Output Total 1800 ml 400 ml Balance -1050 ml 0 ml Intake Oral 750 ml 400 ml Output Urine Total 1800 ml 400 ml # Voids 5 3 General Appearance: no acute distress HEENT: normocephalic Respiratory/Chest: chest wall non-tender, lungs clear Cardiovascular: normal peripheral pulses, normal rate Abdomen: normal bowel sounds Laboratory Tests 06/03/17 06:50: Troponin I 0.077H, Pro-B-Type Natriuretic Peptide 757H Current Medications Medications (Trade) Dose Ordered Sig/Migel Route PRN Reason Start Time Stop Time Status Last Admin Dose Admin Acetaminophen (Tylenol) 650 mg Q6H PRN ORAL Mild Pain/Temp > 100.5 06/03/17 03:15 07/03/17 03:14 06/03/17 03:20 Aspirin (ASA) 81 mg DAILY ORAL 06/02/17 20:30 07/02/17 20:29 06/02/17 21:27 Azithromycin (Zithromax) 250 mg DAILY ORAL 06/03/17 09:00 06/08/17 08:59 Dextrose (Dextrose 50%) STAT PRN IV Hypoglycemia 06/02/17 13:45 07/02/17 13:44 Fluticasone Propionate (Flonase) 2 spray DAILYPRN PRN NASAL allergic rhinitis 06/02/17 13:30 07/02/17 13:29 Furosemide (Lasix) 40 mg DAILY ORAL 06/03/17 09:00 06/30/17 08:59 Gabapentin (Neurontin) 300 mg TID ORAL 06/02/17 18:00 06/30/17 08:59 06/02/17 16:31 Insulin Aspart (NovoLOG) BEFORE MEALS AND HS SUBQ 06/02/17 16:30 06/30/17 20:59 06/03/17 05:48 Insulin Detemir (Levemir) 8 units DAILY SUBQ 06/03/17 09:00 06/30/17 08:59 Insulin Detemir (Levemir) 60 units BEDTIME SUBQ 06/02/17 21:00 07/01/17 20:59 06/02/17 20:58 Losartan Potassium (Cozaar) 100 mg DAILY ORAL 06/03/17 09:00 06/30/17 09:59 Methylprednisolone Sodium Succinate (Solu-MEDROL) 40 mg EVERY 12 HOURS IVP 06/02/17 21:00 06/30/17 00:00 06/02/17 20:54 Metoprolol Tartrate (Lopressor) 50 mg Q12HR ORAL 06/02/17 21:00 06/30/17 08:59 06/02/17 20:55 Pantoprazole (Protonix) 40 mg DAILY ORAL 06/03/17 09:00 06/30/17 09:44 Potassium Chloride (K-Dur) 20 meq DAILY ORAL 06/03/17 09:00 06/30/17 08:59 Mina Kaur MD Jun 03, 2017 09:38
[2017-06-03] MEDS: Aspirin Baby 81mg ORAL SCH (09:42)
[2017-06-03] MEDS: Losartan 50mg tab ORAL SCH (09:42)
[2017-06-03] MEDS: Metoprolol Tartrate 50mg tab ORAL SCH ×2 (09:43→20:37)
[2017-06-03] MEDS: Furosemide 40mg tab ORAL SCH (09:43)
[2017-06-03] MEDS: Azithromycin 250mg tab ORAL SCH (09:43)
[2017-06-03] MEDS: Solu-MEDROL 40mg Inj IVP SCH ×2 (09:49→20:36)
[2017-06-03] MEDS: Levemir Flexpen SUBQ SCH ×2 (09:50→20:38)
[2017-06-03 12:00] VITALS: BP 144/72
[2017-06-03 16:00] VITALS: BP 139/58
[2017-06-03 20:00] VITALS: BP 142/60
[2017-06-04] VITALS: BP 123/55
--- NOTE | 2017-06-04 02:30 | Progress Note ---
DATE: 06/03/2017 CARDIOLOGY PROGRESS NOTE SUBJECTIVE: No chest pain. No shortness of breath. Blood pressure parameters now controlled. Monitored rhythm, sinus and sinus bradycardia. OBJECTIVE: LUNGS: Good breath sounds. No wheezing. HEART: Regular rhythm and rate. Normal S1, S2 with a fourth heart sound. ABDOMEN: Soft. EXTREMITIES: No edema. LABORATORY DATA: Troponin levels have decreased. IMPRESSION: 1. Asthma exacerbation. 2. Acute myocardial infarction. 3. Ischemic cardiomyopathy. 4. Malignant hypertension, resolving. PLAN: Maintain current regimen. Myocardial perfusion scan to follow. Jong Matthews M.D. DR: Jasmin JOB#: [id number] CC:
[2017-06-04 04:00] VITALS: BP 132/59
[2017-06-04] MEDS: NovoLOG Insulin Flexpen SUBQ SCH ×4 (06:39→22:05)
[2017-06-04 08:00] VITALS: BP 138/73
[2017-06-04] MEDS: Metoprolol Tartrate 50mg tab ORAL SCH ×2 (08:58→22:03)
[2017-06-04] MEDS: Furosemide 40mg tab ORAL SCH (08:58)
[2017-06-04] MEDS: Losartan 50mg tab ORAL SCH (08:59)
[2017-06-04] MEDS: Azithromycin 250mg tab ORAL SCH (08:59)
[2017-06-04] MEDS: Aspirin Baby 81mg ORAL SCH (08:59)
[2017-06-04] MEDS: Solu-MEDROL 40mg Inj IVP SCH (09:00)
[2017-06-04] MEDS: Levemir Flexpen SUBQ SCH ×2 (09:04→22:06)
--- NOTE | 2017-06-04 10:18 | Pulmonology Progress Note ---
Assessment/Plan Assessment/Plan 1. Exacerbation of asthma. 2. Diabetes, poor control. 3. Hypertension, poor control. 4. History of coronary disease. 5. Chronic kidney disease, stage 3 associated with diabetes. 6. tachycardia; now resolved. PLAN: The patient will be continued on nebulized bronchodilators and steroids. Continue antibiotics and blood pressure medication. The blood sugar will be monitored and insulin adjusted accordingly. Transfer back to [facility] Has troponin leak; seen by cardiology Stress test today Will decrease stteroids. Subjective Interval Events: For stress test today; WBC 17K Constitutional: Reports: no symptoms HEENT: Repors: no symptoms Respiratory: Reports: no symptoms Gastrointestinal/Abdominal: Reports: no symptoms Genitourinary: Reports: no symptoms Allergies: Coded Allergies: No Known Allergies (Unverified , 05/30/17) Objective Last 24 Hour Vital Signs Date Time Temp Pulse Resp B/P (MAP) Pulse Ox O2 Delivery O2 Flow Rate FiO2 06/04/17 08:59 132/73 06/04/17 08:58 62 138/70 06/04/17 04:00 51 06/04/17 04:00 97.6 61 20 132/59 97 Nasal Cannula 2.0 97.6 06/04/17 00:00 48 06/04/17 00:00 96.7 53 20 123/55 97 Nasal Cannula 2.0 96.7 06/03/17 20:37 76 142/60 06/03/17 20:00 97.6 76 22 142/60 97 Room Air 97.6 06/03/17 20:00 61 06/03/17 16:00 58 06/03/17 16:00 97.7 61 19 139/58 98 Room Air 97.7 06/03/17 12:00 57 06/03/17 12:00 97.7 62 19 144/72 97 Room Air 97.7 Intake and Output 06/03/17 06/04/17 19:00 07:00 Intake Total 830 ml Balance 830 ml Intake Oral 830 ml # Voids 3 4 General Appearance: WD/WN HEENT: normocephalic Respiratory/Chest: chest wall non-tender, lungs clear Cardiovascular: normal peripheral pulses, normal rate Abdomen: normal bowel sounds Laboratory Tests 06/04/17 07:42: Troponin I 0.047 Current Medications Medications (Trade) Dose Ordered Sig/Migel Route PRN Reason Start Time Stop Time Status Last Admin Dose Admin Acetaminophen (Tylenol) 650 mg Q6H PRN ORAL Mild Pain/Temp > 100.5 06/03/17 03:15 07/03/17 03:14 06/03/17 03:20 Aspirin (ASA) 81 mg DAILY ORAL 06/02/17 20:30 07/02/17 20:29 06/04/17 08:59 Azithromycin (Zithromax) 250 mg DAILY ORAL 06/03/17 09:00 06/08/17 08:59 06/04/17 08:59 Dextrose (Dextrose 50%) STAT PRN IV Hypoglycemia 06/02/17 13:45 07/02/17 13:44 Fluticasone Propionate (Flonase) 2 spray DAILYPRN PRN NASAL allergic rhinitis 06/02/17 13:30 07/02/17 13:29 Furosemide (Lasix) 40 mg DAILY ORAL 06/03/17 09:00 06/30/17 08:59 06/04/17 08:58 Gabapentin (Neurontin) 300 mg TID ORAL 06/02/17 18:00 06/30/17 08:59 06/04/17 08:59 Insulin Aspart (NovoLOG) BEFORE MEALS AND HS SUBQ 06/02/17 16:30 06/30/17 20:59 06/04/17 06:39 Insulin Detemir (Levemir) 8 units DAILY SUBQ 06/03/17 09:00 06/30/17 08:59 06/04/17 09:04 Insulin Detemir (Levemir) 60 units BEDTIME SUBQ 06/02/17 21:00 07/01/17 20:59 06/03/17 20:38 Losartan Potassium (Cozaar) 100 mg DAILY ORAL 06/03/17 09:00 06/30/17 09:59 06/04/17 08:59 Methylprednisolone Sodium Succinate (Solu-MEDROL) 40 mg EVERY 12 HOURS IVP 06/02/17 21:00 06/30/17 00:00 06/04/17 09:00 Metoprolol Tartrate (Lopressor) 50 mg Q12HR ORAL 06/02/17 21:00 06/30/17 08:59 06/04/17 08:58 Pantoprazole (Protonix) 40 mg DAILY ORAL 06/03/17 09:00 06/30/17 09:44 06/04/17 08:59 Potassium Chloride (K-Dur) 20 meq DAILY ORAL 06/03/17 09:00 06/30/17 08:59 06/04/17 08:59 Mina Kaur MD Jun 04, 2017 10:18
[2017-06-04 12:00] VITALS: BP 143/86
[2017-06-04 16:00] VITALS: BP 141/86
--- NOTE | 2017-06-04 16:34 | Diagnostic Imaging Report ---
Indications: Chest pain and elevated troponin Technique: Single day single isotope protocol utilized. Initially, resting images obtained using IV administration 9.6 millicuries 99M technetium Myoview. Subsequently, patient underwent Dobutamine stress testing. See cardiology report for details. During dobutamine infusion, IV administration 30.1 mCi 99 M technetium Myoview. SPECT and planar images obtained. SPECT images gated to 8 phases of the cardiac cycle were also obtained, and reformatted into cine images for evaluation of ejection fraction. Comparison: none Findings: Presence or absence of symptoms during infusion not reported in the available cardiology report. Per cardiology report, resting EKG demonstrates normal sinus rhythm. During the infusion, or EKG changes. Patient did experience a run of atrial fibrillation in recovery. Patient reached a peak heart rate of 141, in excess of target heart rate 131 bpm imaging demonstrates equivocal decreased perfusion in the inferior wall which is more likely diaphragmatic attenuation artifact. This is similar on the resting images. No definite reversible perfusion defects are demonstrated. Normal cardiac chamber size. Calculated post stress ejection fraction 64%. No focal wall motion abnormality Impression: Nonischemic clinical response to pharmacologic stress, per cardiology report Nonischemic electrocardiographic response to pharmacologic stress, per cardiology report No imaging findings to suggest ischemia, at level of stress achieved. Calculated post stress ejection fraction 64%
--- NOTE | 2017-06-04 18:42 | Cardiology Report ---
APPROVED REPORT EKG Measurement Heart [id number] Unusual P axis and short SC, probable junctional rhythm with undetermined rhythm irregularity Right bundle branch block Cannot rule out Inferior infarct, age undetermined Abnormal ECG
--- NOTE | 2017-06-04 18:54 | Cardiology Report ---
APPROVED REPORT EKG Measurement Heart [id number] NC 158P [id number] Normal sinus rhythm Right bundle branch block Abnormal ECG
[2017-06-04 20:00] VITALS: BP 149/81
--- NOTE | 2017-06-04 23:15 | Progress Note ---
DATE: 06/04/2017 CARDIOLOGY PROGRESS NOTE SUBJECTIVE: The patient has no new complaints. No shortness of breath or chest pain. She continued on steroids with tapering and bronchodilators via nebulization. The patient underwent myocardial perfusion scan today with dobutamine stress. Her perfusion images revealed no ischemia and ejection fraction was normal at 64% post-stress. PHYSICAL EXAMINATION: VITAL SIGNS: Blood pressure 132/73, pulse 62, respiratory rate 20. Monitored rhythm sinus and sinus bradycardia. LUNGS: Good breath sounds. No wheezing. HEART: Regular rhythm and rate. Normal S1 and S2. ABDOMEN: Soft. EXTREMITIES: No edema. IMPRESSION: 1. Ischemic heart disease with troponin leak likely associated with malignant hypertension. No signs of reversible ischemia with dobutamine stress. 2. History of CABG. 3. Sinus bradycardia secondary to medications and asymptomatic. 4. Malignant hypertension, now controlled. 5. Asthma exacerbation, resolving. 6. Diabetes mellitus with poor control. 7. Chronic kidney disease. PLAN: 1. Maintain current cardiovascular regimen. 2. Titrate diabetic regimen. 3. 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 4. No additional inpatient cardiovascular workup planned. Jong Matthews M.D. DR: Leta JOB#: [id number] CC:
[2017-06-05] VITALS: BP 145/86
[2017-06-05 04:00] VITALS: BP 145/80
[2017-06-05] MEDS: NovoLOG Insulin Flexpen SUBQ SCH ×2 (06:30→12:02)
[2017-06-05 08:00] VITALS: BP 120/65
[2017-06-05] MEDS: Aspirin Baby 81mg ORAL SCH (08:34)
[2017-06-05] MEDS: Azithromycin 250mg tab ORAL SCH (08:35)
[2017-06-05] MEDS: Furosemide 40mg tab ORAL SCH (08:35)
[2017-06-05] MEDS: Losartan 50mg tab ORAL SCH (08:35)
[2017-06-05] MEDS: Metoprolol Tartrate 50mg tab ORAL SCH (08:35)
[2017-06-05] MEDS ORDERED: PROTONIX40 MG ORAL (09:39)
[2017-06-05] MEDS ORDERED: PREDNISONE20 MG ORAL (09:39)
[2017-06-05] MEDS ORDERED: LEVEMIR FL100 UNIT/1 SUBQ ×2 (09:39)
[2017-06-05] MEDS ORDERED: FLONASE1 SPRAYS NASAL (09:39)
[2017-06-05] MEDS ORDERED: COZAAR50 MG ORAL (09:39)
[2017-06-05] MEDS ORDERED: FUROSEMIDE40 MG ORAL (09:39)
[2017-06-05] MEDS ORDERED: POTASSIUM CHLO20 ME1 ORAL (09:39)
[2017-06-05] MEDS: Levemir Flexpen SUBQ SCH (09:43)
--- NOTE | 2017-06-05 09:43 | Discharge Summary ---
Discharge Summary Hospital Course Date of Admission May 30, 2017 at 19:01 Date of Discharge 06/05/17 Admitting Diagnosis ASTHMA EXACERBATION HPI Mynor Blair is a 67 year old male who was admitted on May 30, 2017 at 19:01 for Asthma Consultations cardiology Procedures stress cardiac imaging - no ischemia Hospital Course improved with asthma treatment stress study neg dc home 1. Ischemic heart disease with troponin leak likely associated with malignant hypertension. No signs of reversible ischemia with dobutamine stress. 2. History of CABG. 3. Sinus bradycardia secondary to medications and asymptomatic. 4. Malignant hypertension, now controlled. 5. Asthma exacerbation, resolving. 6. Diabetes mellitus with poor control. 7. Chronic kidney disease. Discharge Medications New Medications: Fluticasone Propionate (Fluticasone Propionate) 16 Gm [place].susp 2 SPRAY NASAL DAILYPRN PRN, #1 EA per nostril Furosemide* (Lasix*) 40 Mg Tablet 40 MG ORAL DAILY, #30 TAB Insulin Detemir (Levemir Flexpen) 100 Unit/1 Ml Insuln.pen 8 UNITS SUBQ DAILY, #1 EA Insulin Detemir (Levemir Flexpen) 100 Unit/1 Ml Insuln.pen 60 UNITS SUBQ BEDTIME, #1 EA Losartan Potassium* (Cozaar*) 50 Mg Tablet 100 MG ORAL DAILY, #30 TAB Pantoprazole* (Protonix*) 40 Mg Tablet.dr 40 MG ORAL DAILY, #14 TAB Potassium Chloride* (K-Dur*) 20 Meq Tab.er.prt 20 MEQ ORAL DAILY, #30 TAB Prednisone* (Prednisone*) 20 Mg Tablet 10 MG ORAL DAILY, #12 TAB Continued Medications: Aspirin* (Aspir 81*) 81 Mg Tablet.dr 81 MG ORAL DAILY, TAB Gabapentin* (Gabapentin*) 300 Mg Capsule 300 MG ORAL THREE TIMES A DAY, CAP 0 Refills Insulin Aspart* (Novolog*) 100 Unit/1 Ml Insuln.pen 0 SUBQ, #1 EA 0 Refills Metoprolol Tartrate* (Metoprolol Tartrate*) 50 Mg Tablet 50 MG ORAL EVERY 12 HOURS, TAB 0 Refills Montelukast Sodium* (Montelukast Sodium*) 10 Mg Tablet 10 MG ORAL DAILY, TAB Potassium Bicarbonate/Cit Ac (Potassium 25 Meq Tablet Eff) 25 Meq Tablet.eff 25 MEQ PO DAILY, TAB Theophylline Anhydrous (Theophylline) 400 Mg Tablet.er 300 MG PO DAILY, TAB Discharge Condition Upon Discharge: improving Discharge Disposition Patient was discharged to home Discharge Diagnoses: (1) HTN (hypertension) (2) CAD (coronary artery disease) (3) Diabetes mellitus with renal manifestation Torito Moreau MD Jun 05, 2017 09:43
[2017-06-05 12:00] VITALS: BP 123/73
--- NOTE | 2017-06-05 20:09 | Cardiology Report ---
APPROVED REPORT EXAM: Two-dimensional and M-mode echocardiogram with Doppler and color Doppler. INDICATION Acute myocardial infarction M-Mode DIMENSIONS IVSd1.5 (0.7-1.1cm)Left Atrium (MM)4.0 (1.6-4.0cm) LVDd4.1 (3.5-5.6cm)Aortic Root3.7 (2.0-3.7cm) PWd1.8 (0.7-1.1cm)Aortic Cusp Exc.2.0 (1.5-2.0cm) LVDs2.5 (2.5-4.0cm) PWs2.3 cm Normal left ventricular chamber size, systolic function and wall motion. Left ventricular ejection fraction estimated to be 55 %. Mild left ventricular hypertrophy. Anterior Echo-free space, may be due to pericardial fat or effusion. Left atrial size at upper limits of normal. Right cardiac chamber sizes are within normal limits. Focal aortic valve sclerosis with adequate cusp excursion. Thickened mitral valve leaflets with normal excursion. Mild mitral annulus and aortic root calcification. Normal pulmonic valve structure. Normal tricuspid valve structure. IVC dilated at 2.0 cm with physiological collapse. A color flow and spectral Doppler study was performed and revealed: Trace aortic insufficiency. Trace mitral regurgitation. reduced left ventricular relaxation c/w impaired relaxation diastolic dysfunction. Trace tricuspid regurgitation. Tricuspid systolic velocities suggests peak right ventricular systolic pressure of 25 mmHg. No pulmonic regurgitation present.
--- NOTE | 2017-06-06 02:31 | Progress Note ---
DATE: 06/05/2017 CARDIOLOGY PROGRESS NOTE SUBJECTIVE: The patient is without new distress. Dobutamine myocardial perfusion scan yesterday revealed no reversible ischemia with normal ejection fraction with dobutamine stress. The patient's monitored rhythm remained sinus and sinus bradycardia on low-dose beta-shivam therapy. SUBJECTIVE: VITAL SIGNS: Blood pressure 120/65, pulse 61, respirations 20, and afebrile. NECK: Supple. LUNGS: Clear. CARDIAC: Regular rhythm and rate. Normal S1, S2 with a fourth heart sound. ABDOMEN: Soft. No edema. Median sternotomy scar. IMPRESSION: 1. Ischemic heart disease with troponin leak due to malignant range blood pressure that has now been controlled. No signs of reversible ischemia with dobutamine stress noted. 2. Prior history of CABG with adequate coronary flow reserve. 3. Stable cardiac rhythm with asymptomatic sinus bradycardia associated with beta-shivam therapy. 4. Hypertension, now controlled following episodes of malignant hypertension. 5. Chronic kidney disease, stable. 6. Diabetes mellitus with improving control. PLAN: Outpatient followup on current cardiovascular regimen including anti-platelet and anti-lipid drugs terminal manager. Jong Matthews M.D. DR: TRAV JOB#: [id number] CC:
== END 2017-06-05 15:30 | disposition home or self-care (01) | DRG 203 ==
LOC: EDBEDREQ 15:21 → EMR 15:42 → 2E 16:34 → EDBEDREQ 16:34 → OBSVTOIN 19:01 → 2E 20:46 → ICU 06-02 04:20 → 2E 06-02 13:07
DX: J45.901 Unspecified asthma with (acute) exacerbation (principal); E11.22 Type 2 diabetes mellitus with diabetic chronic kidney disease; I13.10 Hypertensive heart and chronic kidney disease without heart failure, with stage 1 through stage 4 chronic kidney disease, or unspecified chronic kidney disease; I10 Essential (primary) hypertension; I12.9 Hypertensive chronic kidney disease with stage 1 through stage 4 chronic kidney disease, or unspecified chronic kidney disease; N18.3 Chronic kidney disease, stage 3 (moderate); E11.65 Type 2 diabetes mellitus with hyperglycemia; Z87.891 Personal history of nicotine dependence; E78.5 Hyperlipidemia, unspecified; I25.10 Atherosclerotic heart disease of native coronary artery without angina pectoris; I25.2 Old myocardial infarction; I25.5 Ischemic cardiomyopathy; Z95.1 Presence of aortocoronary bypass graft; R00.1 Bradycardia, unspecified
CPT/HCPCS: 36415; 36600; 71045; 78452; 80048; 80053; 80061; 81003; 82803; 82962; 83036; 83880; 84153; 84443; 84484; 85007; 85025; 90630; 93005; 93017; 93306; 94640; 94664; 94760; 99291; J1815; J7620; J8499; S5561